=== PATIENT | female | born 1985 | race Caucasian/White ===

== ENCOUNTER → 2018-08-12 | Outpatient (CLI) | payer OTHER ==
[~2018-08-12] MED LIST: FLU60SYR36 IM; LEVO100T95 PO; MEDR10TA57 PO
[2018-08-12 13:56] LABS: PLATELET COUNT, AUTOMATED 311 K/uL (150-450)
== END ==
LOC: LAB 13:12
PROVIDERS: ATTEND Obstetrics & Gynecology
DX: Z34.81 Encounter for supervision of other normal pregnancy, first trimester (principal)
CPT/HCPCS: 36415; 81001; 84443; 85025; 86592; 86703; 86762; 86850; 86900; 86901; 87088; 87340

== ENCOUNTER → 2018-10-10 | Outpatient (CLI) | payer OTHER ==
--- NOTE | 2018-10-10 13:17 | RADIOLOGY IMAGING REPORT ---
[place] [facility] [place] Radha Tavera : 1985 MR: [id number] V: [id number] EXAM DATE: ORDERING PHYSICIAN: TANG ALEJANDRO TECHNOLOGIST: Location: [facility] - [place], [place] Patient: Radha Tavera : 1985 Visit/Account:[id number] Date of Sevice: 10/10/2018 [facility] [place] OB ANATOMICAL SURVEY HISTORY: screening ADDITIONAL HISTORY: None. COMPARISON: None. TECHNIQUE: Transabdominal imaging was performed for assessment of the fetus and maternal pelvic s tructures. Transvaginal imaging was not performed. FINDINGS: Intrauterine gestations: One. presentation: Breech. heart rate: 155 bpm. Amniotic fluid volume: Normal; JOSEPH 16.30 cm; MVP 4.76 cm. Placenta: Posterior and high. Uterus: Gravid, otherwise unremarkable. Maternal adnexa/ovaries: Grossly unremarkable, ovaries not visualized.. Cervix: Grossly long and closed. Gestational Parameters: BPD: 4.51 cm; 19 weeks/ 5 days HC: 16.94 cm; 19 weeks/ 4 days AC: 15.10 cm; 20 weeks/ 3 days FL: 3.04 cm; 19 weeks/ 3 days Average ultrasound age (AUA): 19 weeks/ 6 days Estimated age based on LMP: 19 weeks/ 2 days Anatomic Survey: Intracranial structures, 4-chamber heart, stomach, kidneys, urinary bladder, spine, 3-vessel cord and cord insertion are unremarkable. Two upper and two lower extremities visualized. Operative and nishi te are intact. Estimated weight is 317 g (+/-47g). This is at the 79th percentile based on gestational age. IMPRESSION: 1. Normal survey. 2. Ultrasound age 19 weeks/6 days consistent with gestational age based on LMP. Gestational age by LMP is 19 weeks/ 2 days with estimated date of delivery 03/04/2019. . Report Dictated By: Jesu Saunders at 10/10/2018 1:09 PM Report E-Signed By: Jesu Saunders at 10/10/2018 1:13 PM WSN:FELICITY
== END ==
LOC: RAD 09:06
PROVIDERS: ATTEND Advanced Practice Midwife
DX: Z02.9 Encounter for administrative examinations, unspecified (principal)

== ENCOUNTER → 2018-12-09 | Outpatient (CLI) | payer OTHER ==
[2018-12-09 11:00] LABS: PLATELET COUNT, AUTOMATED 244 K/uL (150-450)
== END ==
LOC: LAB 08:07
PROVIDERS: ATTEND Advanced Practice Midwife
DX: Z34.92 Encounter for supervision of normal pregnancy, unspecified, second trimester (principal)
CPT/HCPCS: 36415; 82950; 85025

== ENCOUNTER → 2018-12-23 | Outpatient (CLI) | payer OTHER | LOC: LAB 13:06 | PROVIDERS: ATTEND Advanced Practice Midwife | DX: O99.283 Endocrine, nutritional and metabolic diseases complicating pregnancy, third trimester (principal); E03.9 Hypothyroidism, unspecified; R53.83 Other fatigue | CPT/HCPCS: 36415; 84443; 85027 ==

== ENCOUNTER → 2019-01-30 | Outpatient (CLI) | payer OTHER | LOC: LAB 08:12 | PROVIDERS: ATTEND Student in an Organized Health Care Education/Training Program | DX: Z36.85 Encounter for antenatal screening for Streptococcus B (principal) | CPT/HCPCS: 87081 ==

== ENCOUNTER 2019-03-06 01:51 | Inpatient (IN) | payer OTHER ==
[2019-03-06] VITALS (11 sets, daily range): BP systolic 91–112; BP diastolic 50–81; Ht 162.6 cm; Wt 83.9 kg
[~2019-03-06] VITALS: Ht 162.6 cm; Wt 83.9 kg
[2019-03-06] MEDS ORDERED: OXYTOCIN 30 UNIT/NS 500 ML 500 ML IV PRN (01:52)
[2019-03-06] MEDS ORDERED: ceFAZolin(*) 2GM/D5W 50ML 50 ML IVPB PRN ×2 (01:52→04:00)
[2019-03-06] MEDS ORDERED: LR(*) 1000 ML BAG 1,000 ML IV SCH ×2 (01:52→04:00)
[2019-03-06] MEDS ORDERED: OXYTOCIN 30 UNIT/NS 500 ML 500 ML ONE (01:52)
[2019-03-06] MEDS ORDERED: FAMOTIDINE(*) 20MG/50ML PREMIX 50 ML IVPB PRN ×2 (01:52→04:00)
[2019-03-06] MEDS ORDERED: METOCLOPRAMIDE 10 MG/2 ML SDV IVP PRN ×2 (01:55→04:00)
[2019-03-06] MEDS ORDERED: LIDOCAINE/SOD BICARB 8.4% SYR SC PRN (01:55)
[2019-03-06] MEDS ORDERED: fentaNYL CITR 100 MCG/2 ML AMP IVP PRN (01:55)
[2019-03-06] MEDS ORDERED: FLUSH 10 ML SYR IVP PRN (01:55)
[2019-03-06] MEDS ORDERED: LIDOCAINE 1% LOCAL 300 MG/30ML INJ PRN (01:55)
[2019-03-06 02:19] LABS: PLATELET COUNT, AUTOMATED 240 K/uL (150-450)
--- NOTE | 2019-03-06 02:44 | History & Physical ---
History of Present Illness Age of Patient: 33 : 2 Para or TPAL: 1 EDC per LMP: Mar 04, 2019 Estimated Gestational Age: 40.2 Chief Complaint Pt reports going to the bathroom around midnight and noticing more fluid that just urine, some tissue and some blood. She has been having contractions on an off, but her contractions became more intense and regular at that point. +FM, clean leaking fluid, but not VB. Denies SANCHES, vision changes and RUQ pain. She is with her and he appears very supportive. History Patient's Blood Type: O Positive Rubella Status: Immune Group B Strep Screen: Negative Allergies: Coded Allergies: diphtheria,pertussis (acell),tetanu (Unverified Allergy, Severe, Anaphylaxis as a child, 03/06/19) Social History: Denies Tobacco, etoh, and illicit drug use including marijuana Family History: FH: diabetes mellitus MOTHER FH: lung cancer GRANDMOTHER FH: thyroid condition FATHER MOTHER FHx: brain cancer GRANDFATHER Med Rec Home Meds Active Scripts Levothyroxine Sodium (SYNTHROID) 100 Mcg Tablet, 100 MCG PO QDAY for 30 Days 1 tab PO daily, 2 times per week taking 2 tabs daily Prov:JOSÉ MIGUEL SHEA MD 08/12/18 Review of Systems Eyes: No Vision Change Respiratory: No Shortness of Breath Gastrointestinal: No Nausea, No Vomiting, No Diarrhea; Abdominal Pain (uterine contractions) Genitourinary: No Dysuria Psychiatric: No Depression, No Anxiety Exam General Exam General Apperance: Alert/Awake/No Acute Distress Neuro: No Gross deficits Eyes: Normal Extraocular Movement & Vison ENT: Normal Cardiovascular: Regular Rate and Rhythm Respiratory: No Respiratory Distress Abdomen: Gravid - Non-Tender, RUQ Non-Tender : Normal Musculoskeletal: No Weakness/Pain Extremities: No Cyanosis,Clubbing or Edema Integumentary: Skin Intact without Lesions or Rash Psychological: Alert & Oriented X3, Appropriate Mood & Affect Vaginal Discharge/Fluid?: Bloody Show Cervical Dialation: 7 Cervical Effacement (%): 100 Cervical Consistency: Soft Cervical Position: Anterior Station: -1 Presentation: Vertex Uterine Contractions(Q min): 3 Uterine Contraction Strength: Moderate UC Resting Tone: Soft Fetus Feeling Movement?: Yes Estimated Weight(grams): 3700 Heart Tones: 125 Heart Tone Variabilty: Moderate FHT Accelerations: Present, 15X15 FHT Decelerations: None FHT Category: I Medical Decision Making Data Points Result Diagram: 03/06/19 0200 VTE Prophylasis: Adult Pharmacological Contraindicati: Pt at Low Risk for VTE Mechanical Contraindications: Pt at Low Risk for VTE Assessment and Plan Hospital Day: 1 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
[2019-03-06] MEDS ORDERED: fentaNYL CITR 100 MCG/2 ML AMP ONE (04:40)
[2019-03-06] MEDS ORDERED: MORPHINE PF 5 MG/10 ML AMP ONE (04:40)
[2019-03-06] MEDS ORDERED: OXYTOCIN 10 UNIT/ML SDV ONE (04:40)
[2019-03-06] MEDS ORDERED: ONDANSETRON 4 MG/2 ML VIAL ONE (05:11)
[2019-03-06] MEDS ORDERED: ePHEDrine 25 MG/5 ML DISP.SYR IVP ONE (05:11)
[2019-03-06] MEDS ORDERED: KETOROLAC 30 MG/ML VIAL ONE (05:11)
[2019-03-06] MEDS ORDERED: DLR(*) 1000 ML BAG 1,000 ML IV PRN (06:12)
[2019-03-06] MEDS ORDERED: LANOLIN OINT 7 GM TUBE TP PRN (06:15)
[2019-03-06] MEDS ORDERED: oxyCODON/ACET (*)5/325MG (CII) 1 TAB TAB PO PRN (06:15)
[2019-03-06] MEDS ORDERED: PROMETHAZINE 25 MG/ML 1 ML AMP IVP PRN (06:15)
[2019-03-06] MEDS ORDERED: ONDANSETRON 4 MG/2 ML VIAL IV PRN (06:15)
[2019-03-06] MEDS ORDERED: INFLUENZA VIRUS VAC 0.5ML SYR IM ONLY ONE (06:15)
[2019-03-06] MEDS ORDERED: SIMETHICONE 80 MG CHEW CHEW PRN (06:15)
[2019-03-06] MEDS ORDERED: MAGNESIUM HYDROXIDE* 30ML UDCP PO PRN (06:15)
[2019-03-06] MEDS ORDERED: MEASLES,MUMP,RUBELLA VAC 0.5ML SUBQ ONE (06:15)
[2019-03-06] MEDS ORDERED: ACETAMINOPHEN 325 MG TAB PO PRN (06:15)
--- NOTE | 2019-03-06 06:18 | Labor Progress Note ---
Labor Subjective Progress Notes Subjective PT having pain while pushing, states "something is not right, he isn't coming out" Vaginal Discharge/Fluid: Clear Fluid Labor Pain: Severe Neurological: No Headache Labor Objective Vaginal Discharge/Fluid?: Clear Fluid Cervical Dialation: 10 Cervical Effacement (%): 100 Cervical Consistency: Soft Station: -1 Presentation: Vertex Uterine Contraction Strength: Strong UC Resting Tone: Soft Fetus Heart Tone Variabilty: Moderate FHT Decelerations: Variable FHT Category: II General Exam General Appearance: Alert/Awake/No Acute Distress Respiratory: No Respiratory Distress Abdomen: Gravid - Non-Tender Integumentary: Skin Intact without Lesions or Rash Psychological: Alert & Oriented X3, Appropriate Mood & Affect Other Result Diagram: 03/06/19 0200 Assessment and Plan Problems: (1) Uterine contractions Onset Date: ~ 03/06/2019 Status: Acute (2) Arrest of descent, delivered, current hospitalization Status: Acute (3) Non-reassuring status Status: Acute Assessment & Plan: Pt has been pushing effectively for 30 minutes with no epidural and there has been no head descent beyond -1 station. Also, persistent cat II strip has developed with deep variables that are slow to recover at times. PLTCS recommended. Informed consent obtained. Will proceed to OR. Please note this was a late entry into the chart due to urgent need to proceed to surgery. FRANCA NOEL DO Mar 06, 2019 06:18
--- NOTE | 2019-03-06 06:20 | Post Operative Note ---
Operative Note - WRAPPER LAYER AND EXAMINER SOFT WORK Operative Day Date: Mar 06, 2019 Physicians Surgeon: Dr. Blakely Monomer Purification Operator: Jodee Vogel CNM Anesthesia: Spinal Diagnosis Pre-Op Diagnosis: IUP at 40 weeks, active labor, arrest of descent during pushing, nonreassuring status Post-Op Diagnosis: Same as above, delivery of a viable cph male, HERI, 8lb 5 oz, apgars 8 and 9 Procedure Findings: NOrmal appearing uterus, tubes and ovaries Procedure(s): PLTCS Specimen Removed:(Maybe N/A): Placenta, umbilical cord blood, unable to obtain cord blood per RN Complications: N/A Fluids Estimated Blood Loss: 700cc FRANCA BLAKEYL DO Mar 06, 2019 06:20
--- NOTE | 2019-03-06 06:28 | Anesthesia OB Pre-Anes Eval ---
History of Present Illness Anesthesia Start Date: Mar 06, 2019 Anesthesia Start Time: 04:55 OB Anesthesia Diagnosis: spontaneous labor, primary c/section Complications: Pt laboring and pushing for 30 min... decrease FHT EDC: Mar 04, 2019 : 2 Para: 1 Pain Ratin Result Diagram: 03/06/19 0200 Height (Inches): 64.00 Weight (Pounds): 185 Past Medical History Medical History: other (hypothyroid) Surgical History: noncontributory Attended Childbirth Classes?: No Hx Anesthesia Reactions: No Hx Family Anesthesia Reaction: No Home Meds Active Scripts Levothyroxine Sodium (SYNTHROID) 100 Mcg Tablet, 100 MCG PO QDAY for 30 Days 1 tab PO daily, 2 times per week taking 2 tabs daily Prov:JOSÉ MIGUEL SHEA MD 08/12/18 Allergies: Coded Allergies: diphtheria,pertussis (acell),tetanu (Unverified Allergy, Severe, Anaphylaxis as a child, 03/06/19) Anesthesia OB ROS Neurological: No migraines/headaches, No seizures, No neuropathy, No other ENT: Denies Tooth caps, Denies Loose teeth, Denies Chipped teeth, Denies Dentures, Denies Bridges, Denies Retainers, Denies Veneers, Denies Implants, Denies Tongue ring, Denies Other Pulmonary: No asthma, No smoker (pks/day/yrs), No other Airway Class: ll Cardiovascular ROS: No edema, No arrhythmia, No other GI ROS: clear liquids Last Solids Date: Mar 05, 2019 Last Solids Time: 18:30 ROS: No Herpes, No STD(s), No Liver Disease, No Renal Disease, No Other Endocrine ROS: thyroid disorder Musculoskeletal ROS: No low back pain, No low back injury, No scoliosis, No other ASA Classification: 2, E Assessment and Plan Anesthesia Plan: SAB Anesthesia Stop Day: Mar 06, 2019 Anesthesia Stop Time: 06:12 DRE CASTELLANOS CRNA Mar 06, 2019 06:28
--- NOTE | 2019-03-06 07:07 | OPERATIVE REPORT 1 ---
EVENT DATE: March 06, 2019 SURGEON: Gwendolyn Blakely DO ANESTHESIA: Spinal. MANAGER OF COMPLIANCE: Jodee Arias, Certified Nurse Study Assistant. PREOPERATIVE DIAGNOSIS 1. Intrauterine at 40 weeks. 2. Active labor. 3. Arrest of descent during pushing. 4. Nonreassuring status. POSTOPERATIVE DIAGNOSIS 1. Intrauterine at 40 weeks. 2. Active labor. 3. Arrest of descent during pushing. 4. Nonreassuring status. 5. Delivery of a viable cephalic male in the right occiput anterior position weighing 8 pounds 5 ounces, nuchal cord x1 and Apgars of 8 and 9. PROCEDURE PERFORMED Primary low transverse section. ESTIMATED BLOOD LOSS 700 cc. SPECIMENS Placenta and umbilical cord blood. A registered nurse attempted to draw umbilical cord gases but was unable to. COMPLICATIONS None. DISPOSITION Stable to recovery room. DESCRIPTION OF PROCEDURE After informed consent was obtained, the patient was taken to the operating room. Spinal anesthesia was administered and found to be adequate. The patient was placed on the operating table in the supine position with a leftward tilt and then prepped and draped in the normal sterile fashion. A Pfannenstiel skin incision was made using the scalpel and carried down to the underlying layer of the fascia. The fascia was incised in the midline and extended out laterally with sharp dissection. Jinny clamps were then placed along the fascial incision and the fascia was tented up and the underlying rectus muscles were dissected off sharply. The rectus muscles were then in the midline. The peritoneum was entered digitally. The peritoneal incision was then extended out laterally with good visualization of the bowel and bladder using the Metzenbaum scissors. The Lisandro O abdominal retractor was placed and secured. A bladder flap was created with sharp dissection. The lower uterine segment was then incised in a transverse curvilinear fashion. Hysterotomy incision was then extended out laterally using blunt dissection. The infant's head was delivered atraumatically, followed by the body. Nuchal cord x1 was noted and reduced at the time of delivery. After the infant was delivered, the baby was vigorous. The nose and mouth were bulb suctioned. Delayed cord clamping was performed for 30 seconds and then the cord was doubly clamped and cut and the infant was handed off to our awaiting nursery staff including Dr. Reyes, [place]. Next, a segment of cord was doubly clamped and cut and handed off for assessment of cord blood and cord gases. The placenta was then delivered manually. The uterus was exteriorized and cleared of all clots and debris and hysterotomy incision was repaired in a running locked fashion using 0 Vicryl. Excellent hemostasis was achieved. Irrigation was performed. The uterus was returned back to the abdomen. Gutters were cleared of any remaining clots and debris. The hysterotomy incision was revisualized and noted to remain dry. At this time, the Lisandro O retractor was removed and we proceeded with closure of our peritoneum. The peritoneum was reapproximated in the midline using 3-0 Vicryl. A single stitch of 3-0 Vicryl was placed in the muscle to close the diastasis rectus that had developed from using a [id number] stitch of 3-0 Vicryl. Next, the fascia was reapproximated using #1 Vicryl in a running fashion. The subcutaneous layer was dry after irrigation and reapproximated using 3-0 Vicryl and the skin was closed using a subcuticular stitch of 4-0 Monocryl reinforced with Dermabond skin glue. The patient tolerated the procedure well. Sponge, lap and instrument counts were correct and she was taken to the recovery room in stable condition. DUGLAS
[2019-03-06] MEDS ORDERED: METOCLOPRAMIDE 10 MG/2 ML SDV ONE (08:09)
[2019-03-06] MEDS ORDERED: FAMOTIDINE(*) 20MG/50ML PREMIX 50 ML IVPB ONE (08:09)
[2019-03-06] MEDS: FAMOTIDINE 20 MG TAB PO SCH ×2 (09:54→21:16)
[2019-03-06] MEDS: DOCUSATE CALCIUM 240 MG CAP PO SCH ×3 (09:54→21:15)
[2019-03-06] MEDS: KETOROLAC 30 MG/ML VIAL IVP SCH ×2 (12:04→18:00)
[2019-03-06] MEDS ORDERED: ACETAMINOPHEN 650 MG SUPP PR PRN (19:55)
[2019-03-06] MEDS ORDERED: SUCRALFATE 1 GM TAB PO ONE (20:15)
[2019-03-07 00:05] VITALS: BP 100/62
[2019-03-07] MEDS: IBUPROFEN 800 MG TAB PO SCH ×2 (01:00→09:27)
[2019-03-07 05:15] VITALS: BP 95/56
--- NOTE | 2019-03-07 05:54 | Anesthesia Post Eval Note ---
Anesthesia Post Eval Note Vital Signs 03/06/19 03/06/19 03/07/19 06:45 11:45 05:15 Temp 97.7 Pulse 82 Resp 16 B/P (MAP) 95/56 (69) Pulse Ox 96 O2 Delivery Room Air O2 Flow Rate 1.0 Pt able to participate in Eval: Yes Cardiovascular Status: Satisfactory Respiratory Status: Satisfactory Pain Managment: Satisfactory PO Nausea/Vomiting: Satisfactory Temperature Management: Satisfactory Mental Status: Satisfactory, Alert, Oriented X3 Post-Op Hydration Status: Satisfactory, Tolerating PO Well, Voiding w/o Difficulty Anesthesia Type: DRE HALL CRNA Mar 07, 2019 05:54
[2019-03-07 06:28] LABS: PLATELET COUNT, AUTOMATED 190 K/uL (150-450)
[2019-03-07 08:05] VITALS: BP 102/66
--- NOTE | 2019-03-07 09:02 | OB/GYN Progress Note ---
OB Subjective Progress Notes Subjective Pt is doing really well this am and would like to go home. She has been voiding well, passing gas and ambulating. She is tolerating her pain with Toradol and now ibuprofen. She denies SANCHES, dizziness, vision changes, calf pain or tenderness and RUQ pain. She reports that is going well and denies sore n ipples, cracks or bleeding. She denies anxiety or depression. GI: POS Flatus; NEG Nausea, NEG Vomiting, NEG Bowel Movement : Voiding Well, Vaginal Bleeding, Scant Pain: Moderate, Tolerating PO Pain Meds Neurological: No Headache Eyes: No Visual Disturbances OB Objective Physical Exam Vital Signs Date Time Temp Pulse Resp B/P (MAP) Pulse Ox O2 Delivery O2 Flow Rate FiO2 03/07/19 05:15 97.7 82 16 95/56 (69) Room Air 03/06/19 11:45 96 03/06/19 06:45 1.0 Intake and Output 03/07/19 07:02 Intake Total 720 ml Output Total 1800 ml Balance -1080 ml Intake Oral 720 ml Output Urine Total 1100 ml Estimated Blood Loss 700 ml # Voids 1 General Appearance: Alert/Awake/No Acute Distress Neurological: No Gross deficits Eyes: Normal Extraocular Movement & Vison Cardiovascular: Normal Rhythm & Peripheral Pulses Respiratory: No Respiratory Distress, Clear to Auscultation Abdomen: Soft, Non-Tender, Non-Distended, Bowel Sounds Present, Fundus Firm Incision: Clean (small area of prulent drainage on the right side of incision), Dry, Intact, Dermabond Extremities: No Cyanosis,Clubbing or Edema, Warm, Pulses, Edema (trace); No Tender Calves, No Clonus Integumentary: Skin Intact without Lesions or Rash, Incision Psychological: Alert & Oriented X3, Appropriate Mood & Affect Result Diagram: 03/07/19 0554 Assessment and Plan Problems: (1) Uterine contractions Onset Date: ~ 03/06/2019 Status: Resolved (2) Arrest of descent, delivered, current hospitalization Status: Resolved (3) Non-reassuring status Status: Resolved (4) delivery, delivered, current hospitalization Onset Date: ~ 03/06/2019 Status: Acute Assessment & Plan: Pt is POD #1 from a delivery for NRFT and arrest of descent on 03/06/19. VSS, normotensive and afebrile. Hct/hgb low today, but pt is asymptomatic. Plan to treat with Iron 335mg PO BID with Colace. Voiding well and passing gas, continue Colace and encourage fresh fruits and vegetables. TANG ALEJANDRO CNM Mar 07, 2019 09:02
[2019-03-07] MEDS: FAMOTIDINE 20 MG TAB PO SCH (09:27)
[2019-03-07] MEDS: DOCUSATE CALCIUM 240 MG CAP PO SCH (09:27)
[2019-03-07] MEDS ORDERED: FERROUS SULFATE 325 MG TAB PO SCH (09:30)
--- NOTE | 2019-03-07 09:42 | OB/GYN Discharge Summary ---
Discharge Summary Reason for Hosp/Final Diag: (1) Uterine contractions Onset Date: ~ 03/06/2019 Status: Resolved (2) Arrest of descent, delivered, current hospitalization Status: Resolved (3) Non-reassuring status Status: Resolved (4) delivery, delivered, current hospitalization Onset Date: ~ 03/06/2019 Status: Acute Hospital Course & Plan: Admission Diagnoses: Uterine contractions Reason for Hospitalization: Labor, and /postop care Procedures Performed: delivery, spinal Delivery Type: CD Hospital Course: pt was admitted in active labor and made it to complete dilation, but has none reassuring heart tones after 30 minutes of pushing and arrest of descent. She was taken promptly for a delivery by Dr. Gwendolyn Blakely MD and assisted by Milagros Vogel CNM and had a live male infant without complications. Delivery Information: See operative report Estimated blood loss: 700 Episiotomy: none Incision: low transverse Pain Management: spinal Subjective: pt is doing very well today and would like to go home Abdominal/ incisional pain: minimal and tolerating well with ibuprofen Perineal pain: none Vaginal bleeding: moderate with small clots Flatus: yes UTI symptoms: Denies Feeding modality: Breast Problems with breast feeding: None Bowel movement: no Ambulating: yes Preeclampsia symptoms: denies Nausea/vomiting: none control: will discuss at 2 week visit Objective Exam: Vitals: Normotensive and afebrile Breasts: Soft, non tender, no nipple cracks or bleeding, +colostrum Abdomen: FF at the U, +BS Perineum: intact Lochia: moderate, no large clots Extremities: BLE, soft, non tender, -homans sign Disposition: Patient discharged to home in medically stable condition. No Known Allergies Medication Instructions Given to the Patient at Discharge: Take Ibuprofen 800mg PO TID for 5-7 days as needed Iron 325mg PO BID Percocet 5/325 mg 1-2 tabs PO Q4-6 hours Pain Colace 240mg PO BID while taking Iron Follow-up Appointment: This Wednesday and 2&6 weeks with Milagros Vogel CNM Activity/Restrictions: Pelvic rest; nothing in vagina for six weeks and no lifting greater than 10lbs for 6 weeks Return Precautions: Patient instructed to call the clinic or return to hospital for fever > 101 degree F; chills; severe nausea or vomiting; inability to tolerate anything by mouth for > 24 hours; increasingly severe abdominal/pelvic pain; foul smelling vaginal discharge; vaginal bleeding > 1 pad per hour for > 2 hours; separation, drainage, or redness of incision or laceration site. Reviewed depression and pre-eclampsia s/s and when to seek care. Plan for TSH at 2 week PP visit for history of Chase's disease. Lates Vital Signs Vital Signs Date Time Temp Pulse Resp B/P (MAP) Pulse Ox O2 Delivery O2 Flow Rate FiO2 03/07/19 08:05 98.0 83 16 102/66 (78) Room Air 03/06/19 11:45 96 03/06/19 06:45 1.0 Weight (Pounds): 185 Result Diagram: 03/07/19 0554 Condition: Improved Discharge: Home (this afternoon) Home Meds Active Scripts Ibuprofen (IBUPROFEN) 800 Mg Tablet, 800 MG PO Q8H, #90 TAB 2 Refills Prov:MILAGROS VOGEL CNM 03/07/19 Docusate Calcium (DOCUSATE CALCIUM) 240 Mg Capsule, 240 MG PO BID, #60 CAPSULE 4 Refills Prov:MILAGROS VOGEL CNM 03/07/19 Ferrous Sulfate (FERROUS SULFATE) 325 Mg Tablet, 325 MG PO BIDBS, #60 TAB 5 Refills Prov:MILAGROS VOGEL CNM 03/07/19 Levothyroxine Sodium (SYNTHROID) 100 Mcg Tablet, 100 MCG PO QDAY for 30 Days 1 tab PO daily, 2 times per week taking 2 tabs daily Prov:JOSÉ MIGUEL SHEA MD 08/12/18 Follow up Referrals: [facility]OUL[facility] - 03/10/19 [place] [facility] with MILAGROS VOGEL CNM Follow up in: 3-4 days Discharge Diet: As Tolerates, Resume Prior Admit Diet, Increase Fluid Intake Discharge Activity: As Tolerates, No Heavy Lifting x 6 wks, No Heavy Lifting > 10lb, Pelvic Rest Special Instructions: see dc summary MILAGROS VOGEL CNM Mar 07, 2019 09:42
[2019-03-07] MEDS ORDERED: DOCU240C67 PO (09:53)
[2019-03-07] MEDS ORDERED: FERR-53 PO (09:53)
[2019-03-07] MEDS ORDERED: IBUP800T37 PO (09:55)
[2019-03-07] MEDS ORDERED: PER PO (09:59)
[2019-03-07 11:30] VITALS: BP 106/66
== END 2019-03-07 15:55 | disposition home or self-care (01) | DRG 788 ==
LOC: OB 01:51 → OBSVTOIN 01:51 → OB 07:00
PROVIDERS: ADMIT Obstetrics & Gynecology; ATTEND Obstetrics & Gynecology
PROC: 10D00Z1 Extraction of Products of Conception, Low, Open Approach (ICD-10-PCS; principal; 2019-03-06 04:55)
DX: O99.284 Endocrine, nutritional and metabolic diseases complicating childbirth (principal); O69.81X0 Labor and delivery complicated by cord around neck, without compression, not applicable or unspecified; E06.3 Autoimmune thyroiditis; O62.1 Secondary uterine inertia; O76 Abnormality in fetal heart rate and rhythm complicating labor and delivery; Z3A.40 40 weeks gestation of pregnancy; Z37.0 Single live birth; Z88.7 Allergy status to serum and vaccine
CPT/HCPCS: 36415; 85025; 86850; 86900; 86901; J0690; J1885; J2270; J2405; J2590; J2765; J3010; J7120